=== PATIENT | female | born 1995 | race Caucasian/White ===

== ENCOUNTER → 2021-04-08 | Outpatient (CLI) | payer OTHER ==
--- NOTE | 2021-04-08 17:38 | REP ---
INDICATION: STRAIN OF MUSCLE, FASCIA AND TENDON OF LOWER BACK, INIT. COMPARISON: None. TECHNIQUE: Five views of the lumbar spine are provided. FINDINGS: Lumbar vertebral body heights are preserved. Alignment is normal. Pedicles and posterior elements are intact. There is no evidence of spondylolysis or spondylolisthesis. Sacrum and SI joints are intact. Psoas margins are symmetric. IMPRESSION: Normal lumbar spine radiographs. <Electronically signed by Tobias Desai > 04/08/21 [id number]
--- NOTE | 2021-04-08 17:39 | REP ---
INDICATION: STRAIN OF MUSCLE, FASCIA AND TENDON OF LOWER BACK, INIT. COMPARISON: None. TECHNIQUE: AP and frogleg views of the right hip. FINDINGS: Right femoral head is smooth and rounded and hip joint space is preserved. Periarticular soft tissues are unremarkable. No bony lesion is seen in the right hemipelvis. Right SI joint is intact. IMPRESSION: Negative right hip radiographs. <Electronically signed by Tobias Desai > 04/08/21 [id number]
== END ==
LOC: M RAD 16:57
PROVIDERS: ATTEND Physician Assistant
DX: S39.012A Strain of muscle, fascia and tendon of lower back, initial encounter (principal); S73.101A Unspecified sprain of right hip, initial encounter; X58.XXXA Exposure to other specified factors, initial encounter; Y92.89 Other specified places as the place of occurrence of the external cause; Y93.9 Activity, unspecified; Y99.9 Unspecified external cause status

== ENCOUNTER 2022-12-12 08:14 | Day surgery (SDC) | payer OTHER ==
[~2022-12-12] VITALS: Ht 172.7 cm; Wt 104.8 kg
[~2022-12-12 08:14] MED LIST: LEXA1TAB PO
[2022-12-12 08:46] LABS: HEMATOCRIT 39.1 % (36.0-47.0); HEMOGLOBIN 12.7 g/dl (12.0-15.5)
[2022-12-12] MEDS ORDERED: BUPIVACAINE HCL 0.25% 30ML VIAL As Ordered ONE (09:57)
[2022-12-12] MEDS ORDERED: LIDOCAINE 2% 100MG/5ML SDV (FOR ANES.) As Ordered ONE (10:24)
[2022-12-12] MEDS ORDERED: ROCURONIUM BROMIDE 50MG/5ML VIAL As Ordered ONE (10:24)
[2022-12-12] MEDS ORDERED: ONDANSETRON 4MG 2ML VIAL As Ordered ONE (10:24)
[2022-12-12] MEDS ORDERED: propofoL 200 MG/20 ML VIAL As Ordered ONE (10:24)
[2022-12-12] MEDS ORDERED: fentaNYL 100 MCG/2 ML INJECTION As Ordered ONE (10:24)
[2022-12-12] MEDS ORDERED: SUGAMMADEX SODIUM 500 MG/5 ML VIAL (BRIDION) As Ordered ONE (10:24)
[2022-12-12] MEDS ORDERED: MIDAZOLAM INJ 2MG/2ML VIAL As Ordered ONE (10:24)
[2022-12-12] MEDS ORDERED: HYDROmorphone HCL 2MG/ML 1ML VIAL As Ordered ONE (10:29)
[2022-12-12] MEDS ORDERED: KETOROLAC 60MG 2ML VIAL As Ordered ONE (10:43)
[2022-12-12] MEDS ORDERED: MEPERIDINE 25 MG/ML 1ML VIAL IV PRN (11:20)
[2022-12-12] MEDS ORDERED: ONDANSETRON 4MG 2ML VIAL IV PRN (11:20)
[2022-12-12] MEDS ORDERED: oxyCODONE 5MG TAB PO PRN (11:20)
[2022-12-12] MEDS ORDERED: LR 1,000 ML IV SCH (11:20)
[2022-12-12] MEDS ORDERED: fentaNYL 100 MCG/2 ML INJECTION IV PRN (11:20)
[2022-12-12] MEDS ORDERED: METOCLOPRAMIDE INJ 10MG/2ML VIAL IV PRN (11:20)
[2022-12-12 12:02] VITALS: BP 132/69
== END 2022-12-12 12:41 | disposition home or self-care (01) ==
LOC: M SDC 08:14
PROVIDERS: ATTEND Obstetrics & Gynecology
DX: Z30.2 Encounter for sterilization (principal); Z79.899 Other long term (current) drug therapy
CPT/HCPCS: 36415; 58661; 81025; 85014; 85018; 88302; J1100; J1170; J1885; J2250; J2405; J3010; S0020

== ENCOUNTER → 2024-04-30 | Outpatient (CLI) | payer OTHER | LOC: M RAD 08:30 | PROVIDERS: ATTEND Family Medicine | DX: I10 Essential (primary) hypertension (principal) ==